=== PATIENT | female | born 1995 | race African-American/Black ===

== ENCOUNTER 2020-11-13 07:55 | Emergency (ER) | payer OTHER ==
[~2020-11-13] VITALS: Ht 172.7 cm; Wt 90.0 kg
[2020-11-13 08:24] VITALS: BP 138/102
== END 2020-11-13 08:37 | disposition home or self-care (01) ==
LOC: ED 07:55
DX: Z48.03 Encounter for change or removal of drains (principal); Z98.890 Other specified postprocedural states

== ENCOUNTER 2021-03-05 11:05 | Emergency (ER) | payer OTHER ==
[~2021-03-05] VITALS: Ht 172.7 cm; Wt 85.0 kg
[2021-03-05 13:00] VITALS: BP 135/78
== END 2021-03-05 13:00 | disposition home or self-care (01) ==
LOC: ED 11:05
DX: T19.2XXA Foreign body in vulva and vagina, initial encounter (principal); X58.XXXA Exposure to other specified factors, initial encounter